=== PATIENT | female | born 1950 | race Caucasian/White ===

== ENCOUNTER → 2016-06-14 | Outpatient (CLI) | payer MEDICARE ==
[~2016-06-14] MED LIST: HYDR-4246 PO; IOHEXOL 300 MG/ML 100ml INJECTION ONE; METF10002 PO; NORMAL SALINE 100 ML ONE; SALINE FLUSH 10ml SYRINGE ONE
--- NOTE | 2016-06-14 12:01 | DI ---
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 Coronal and sagittal two-dimensional reformats. Automated Exposure Control and Iterative Reconstruction dose reducing techniques were utilized. Contrast: Omnipaque 300 89 mL Findings: Chest: The lungs are stable in appearance. No pneumonia, pleural effusion or pneumothorax. No worrisome pulmonary nodules or masses. The central airways are patent. Moderate sized hiatal hernia has grown since the prior study. Thyroid gland is mildly heterogeneous with small bilateral nodules. No axillary or mediastinal adenopathy. Heart size is normal. No pericardial effusion. Great vessels are normal for age. Continued significant skin thickening of the left breast similar to the comparison with postsurgical changes noted and multiple surgical clips. No new breast mass seen. Right sided IJ port catheter. Abdomen/pelvis: The liver is decreased in attenuation consistent with fatty infiltration. No enhancing mass or bile duct dilatation. The gallbladder is absent. The spleen, pancreas and adrenal glands are within normal limits. Duodenal diverticulum noted incidentally. Kidneys appear normal. No bowel obstruction. Mild atherosclerotic plaque in the abdominal aorta. No abdominal or pelvic lymphadenopathy. The bladder is distended but thin-walled. Uterus is absent. No free fluid. No evidence of bowel obstruction. Bone windows show mild degenerative change in the spine without lytic or blastic osseous lesion. Impression: Post therapeutic changes in the left breast. No evidence of metastatic disease in the chest, abdomen or pelvis. .
== END ==
LOC: IMA 09:24
PROVIDERS: ATTEND Internal Medicine Hematology & Oncology
DX: C50.512 Malignant neoplasm of lower-outer quadrant of left female breast (principal)
CPT/HCPCS: 71260; 74177; J1642; J7050; Q9967

== ENCOUNTER → 2016-06-28 | Outpatient (CLI) | payer MEDICARE ==
[~2016-06-28] MED LIST changes: -IOHEXOL 300 MG/ML 100ml INJECTION ONE; -NORMAL SALINE 100 ML ONE; -SALINE FLUSH 10ml SYRINGE ONE
== END ==
LOC: WC.BC 13:20
PROVIDERS: ATTEND Internal Medicine Hematology & Oncology
DX: C50.912 Malignant neoplasm of unspecified site of left female breast (principal); N64.59 Other signs and symptoms in breast; Z92.3 Personal history of irradiation; Z98.890 Other specified postprocedural states
CPT/HCPCS: G0204; G0279